=== PATIENT | female | born 1995 | race Caucasian/White ===

== ENCOUNTER 2017-02-17 12:24 | Emergency (ER) | payer OTHER ==
[~2017-02-17] VITALS: Ht 157.4 cm; Wt 72.6 kg
[~2017-02-17 12:24] MED LIST: ANAPROX DS550 MG PO; BACTRIM DS 8001 TA1 PO; CLARITIN10 MG PO; CLINDAMYCIN HY150 MG PO; MOTRIN800 MG PO; NKHM; SEPTRA DS 800 M1 TAB PO; VICODIN 5/500 505 MG; VICODIN 5/500 505 MG PO; VICODIN ES 7501 TAB PO; ZITHROMAX Z PA250 MG PO
[2017-02-17] MEDS ORDERED: ZITHROMAX250 MG PO (14:03)
== END 2017-02-17 14:28 | disposition home or self-care (01) ==
LOC: ED 12:24
DX: J02.9 Acute pharyngitis, unspecified (principal); Z88.1 Allergy status to other antibiotic agents